=== PATIENT | male | born 1975 | race Caucasian/White ===

== ENCOUNTER 2017-01-14 07:59 | Emergency (ER) | payer OTHER ==
[~2017-01-14] VITALS: Ht 175.3 cm; Wt 73.0 kg
[2017-01-14] MEDS ORDERED: ONDANSETRON 2MG/ML, 2ML ONE (08:18)
[2017-01-14] MEDS ORDERED: MORPHINE SULFATE 4 MG/ML, 1ML ONE (08:18)
[2017-01-14] MEDS ORDERED: SODIUM CHLORIDE FLUSH 10ML SYR IVF ONE (08:30)
[2017-01-14] MEDS ORDERED: MORPHINE SULFATE 4 MG/ML, 1ML IVPush PRN (08:30)
[2017-01-14] MEDS ORDERED: ONDANSETRON 2MG/ML, 2ML IVPush ONE (08:30)
[2017-01-14 08:34] LABS: HEMATOCRIT 43.8 % (39.2-51.8); HEMOGLOBIN 14.6 g/dL (13.7-18.0); WHITE BLOOD COUNT 5.2 x10^3/uL (3.4-10)
[2017-01-14 08:40] LABS: ASPARTATE AMINO TRANSFERASE 15 U/L (15-37); BLOOD UREA NITROGEN 13 mg/dL (7-18)
[2017-01-14 10:19] VITALS: BP 116/79
== END 2017-01-14 10:21 | disposition home or self-care (01) ==
LOC: ED 08:46
DX: N23 Unspecified renal colic (principal); Z87.442 Personal history of urinary calculi; G43.909 Migraine, unspecified, not intractable, without status migrainosus
CPT/HCPCS: 36415; 74176; 80053; 81001; 85025; 96374; 96375; 99285; J2405

== ENCOUNTER 2018-10-07 05:42 | Emergency (ER) | payer OTHER ==
[~2018-10-07] VITALS: Ht 175.3 cm; Wt 79.0 kg
[2018-10-07] MEDS ORDERED: ONDANSETRON 2MG/ML, 2ML IVPush ONE (06:00)
[2018-10-07] MEDS ORDERED: SODIUM CHLORIDE FLUSH 10ML SYR IVF ONE (06:00)
[2018-10-07] MEDS ORDERED: KETOROLAC 30 MG/1 ML IVPush ONE (06:00)
[2018-10-07] MEDS ORDERED: KETOROLAC 30 MG/1 ML ONE (06:06)
[2018-10-07] MEDS ORDERED: ONDANSETRON 2MG/ML, 2ML ONE (06:06)
--- NOTE | 2018-10-07 06:10 | NUR ---
TASK RN: PIV PLACED AND PT MEDICATED FOR PAIN.
--- NOTE | 2018-10-07 06:12 | NUR ---
Pt report from Teddy benz. This rn to assume care of pt. Pt aware of need for ua. Awaiting labs.
--- NOTE | 2018-10-07 06:27 | NUR ---
Pt in ct. To attempt ua upon return.
[2018-10-07 06:30] LABS: BASOPHILS # (AUTO) 0.03 x10^3/uL (0-0.1); BASOPHILS % (AUTO) 1 % (0-1); EOSINOPHILS # (AUTO) 0.21 x10^3/uL (0-0.4); EOSINOPHILS % (AUTO) 3 % (1-7); LYMPHOCYTES # (AUTO) 2.58 x10^3/uL (1-3.4); LYMPHOCYTES % (AUTO) 39 % (22-44); MD NO; MEAN CORPUSCULAR HEMOGLOBIN 30.2 pg (27.5-34.5); MEAN CORPUSCULAR HGB CONC 33.8 g/dL (33.2-36.2); MEAN CORPUSCULAR VOLUME 89.3 fL (81-97); MEAN PLATELET VOLUME 8.4 fL (7.4-10.4); MONOCYTES # (AUTO) 0.64 x10^3/uL (0.2-0.8); MONOCYTES % (AUTO) 10 % (2-9); NEUTROPHILS # (AUTO) 3.18 x10^3/uL (1.8-6.8); NEUTROPHILS % (AUTO) 48 % (42-75); PLATELET COUNT 263 x10^3/uL (130-400); RED BLOOD COUNT 5.17 x10^6/uL (4.38-5.82); RED CELL DISTRIBUTION WIDTH 12.7 % (9.4-14.8)
[2018-10-07 06:31] LABS: ALBUMIN 3.9 g/dL (3.4-5.0); ANION GAP 5 mmol/L (5-15); CALCIUM 8.6 mg/dL (8.5-10.1); CHLORIDE 109 mmol/L (98-107); CREATININE 1.05 mg/dL (0.7-1.3)
--- NOTE | 2018-10-07 06:59 | NUR ---
Pt report to Steven benz.
[2018-10-07] MEDS ORDERED: MORPHINE SULFATE 4 MG/ML, 1ML ONE (07:08)
--- NOTE | 2018-10-07 07:11 | NUR ---
REPORT FROM SCOTT WILKINS. PT STATES PAIN INCREASED. AWARE. NEW ORDERS RECIEVED AND IMPLEMENTED. PT RESTING ON [employer]. CALL LIGHT IN REACH. SPO2 MONITORS IN PLACE.
[2018-10-07] MEDS ORDERED: MORPHINE SULFATE 4 MG/ML, 1ML IVPush PRN (07:30)
[2018-10-07 07:42] LABS: MICROSCOPIC INDICATED
[2018-10-07 07:58] LABS: CULTURE INDICATED? YES
[2018-10-07 08:31] VITALS: BP 130/89
--- NOTE | 2018-10-07 08:33 | NUR ---
Patient/Caregiver given discharge instructions and they have confirmed that they understand the instructions. Patient ambulatory with steady gait. Pt to be taken home by . Pt left with all personal belongings.
== END 2018-10-07 08:35 | disposition home or self-care (01) ==
LOC: ED 06:17
DX: N13.2 Hydronephrosis with renal and ureteral calculous obstruction (principal)
CPT/HCPCS: 36415; 74176; 80048; 81001; 82040; 85025; 87086; 96374; 96375; 99284; J1885; J2405